=== PATIENT | male | born 1955 | race Caucasian/White ===

== ENCOUNTER 2019-02-06 12:36 | Outpatient (CLI) | payer OTHER ==
--- NOTE | 2019-02-06 13:29 | MRI ---
MRI lumbar spine noncontrast HISTORY: Low back pain with left leg radiculopathy. FINDINGS: The conus medullaris has normal appearance. There is desiccation of all of the intervertebr al discs. Discogenic endplate changes and Schmorl's nodes involving the endplate bone marrow throughout the lumbar spine. T12-L1: Mild osteophytosis. Central canal and neural foramina are patent. L1-2: Mild disc space narrowing. Mild disc bulge. Thecal sac is patent. Osteophytosis of the facets. Mild to moderate stenosis of each neural foramen. L3-4: Disc space narrowing. Diffuse posterior disc protrusion. Circumferential degenerative changes w ith mild stenosis of the central canal and moderate stenosis of each neural foramen. L4-5: Disc space narrowing. Diffuse posterior disc bulge. Circumferential degenerative changes. Moder ate stenosis of the central canal. Moderate to severe right and severe left foraminal stenoses. L5-S1: Mild disc space narrowing. Minimal disc bulge. Thecal sac is patent. Degenerative changes with moderate right and moderate to severe left foraminal stenoses. IMPRESSION: Multilevel degenerative changes throughout the lumbar spine as detailed above. Stenosis i s most severe at the left L4-5 neural foramen. Clinical correlation regarding the left L4 dermatome is required.
== END 2019-02-06 12:37 | disposition home or self-care (01) ==
LOC: TBSIIMAG 12:36
PROVIDERS: ATTEND Family Medicine
DX: M47.26 Other spondylosis with radiculopathy, lumbar region (principal); M48.061 Spinal stenosis, lumbar region without neurogenic claudication
CPT/HCPCS: 72148

== ENCOUNTER 2020-11-11 09:14 | Outpatient (CLI) | payer OTHER ==
[2020-11-12 02:13] LABS: SARS-CoV-2 PCR by NAA Not Detected (NotDetected)
== END 2020-11-11 09:15 | disposition home or self-care (01) ==
LOC: LABBT 09:14
PROVIDERS: ATTEND Ophthalmology Retina Specialist
DX: Z01.812 Encounter for preprocedural laboratory examination (principal); H54.7 Unspecified visual loss; Z20.822 Contact with and (suspected) exposure to COVID-19
CPT/HCPCS: 87635; U0003; U0005

== ENCOUNTER 2022-07-23 05:58 | Day surgery (SDC) | payer BC, MEDICARE ==
[2022-07-21 09:59] VITALS: BMI 34.7
[2022-07-23] MEDS ORDERED: Heparin 10,000 UNITS/ 10 ML VIAL ONE (06:52)
[2022-07-23] MEDS ORDERED: Dexmedetomidine 200 MCG/2 ML VIAL ONE (06:52)
[2022-07-23] MEDS ORDERED: Protamine Sulfate 50 MG/5 ML VIAL ONE (06:52)
[2022-07-23] MEDS ORDERED: Fentanyl 250 MCG/5 ML VIAL ONE (06:52)
[2022-07-23] MEDS ORDERED: Heparin 25,000 units/D5W 500 ML ONE (06:52)
[2022-07-23] MEDS ORDERED: PROPOFOL 200 MG/20 ML VIAL ONE (07:31)
[2022-07-23] MEDS ORDERED: ePHEDrine 50 MG/ML VIAL ONE (07:31)
[2022-07-23] MEDS ORDERED: Ondansetron PF 4 MG/2 ML Vial ONE ×2 (07:31→13:46)
[2022-07-23] MEDS ORDERED: Rocuronium Bromide 10 MG/ML (10ML VIAL) ONE (07:31)
[2022-07-23] MEDS ORDERED: SUGAMMADEX SODIUM 200 MG/2 ML VIAL ONE (10:12)
[2022-07-23] MEDS ORDERED: Fentanyl 100 MCG/2 ML VIAL ONE ×2 (10:47→11:35)
== END 2022-07-23 14:38 | disposition home or self-care (01) ==
LOC: SDC 05:58
PROVIDERS: ATTEND Internal Medicine Cardiovascular Disease
PROC: 4A023FZ Measurement of Cardiac Rhythm, Percutaneous Approach (ICD-10-PCS; principal; 2022-07-23)
PROC: 4A0234Z Measurement of Cardiac Electrical Activity, Percutaneous Approach (ICD-10-PCS; principal; 2022-07-23)
PROC: 02K83ZZ Map Conduction Mechanism, Percutaneous Approach (ICD-10-PCS; principal; 2022-07-23)
PROC: 02583ZZ Destruction of Conduction Mechanism, Percutaneous Approach (ICD-10-PCS; principal; 2022-07-23)
PROC: B246ZZ4 Ultrasonography of Right and Left Heart, Transesophageal (ICD-10-PCS; principal; 2022-07-23)
DX: I48.0 Paroxysmal atrial fibrillation (principal); I48.4 Atypical atrial flutter; I25.10 Atherosclerotic heart disease of native coronary artery without angina pectoris; I13.2 Hypertensive heart and chronic kidney disease with heart failure and with stage 5 chronic kidney disease, or end stage renal disease; E11.22 Type 2 diabetes mellitus with diabetic chronic kidney disease; N18.6 End stage renal disease; I50.22 Chronic systolic (congestive) heart failure; E78.5 Hyperlipidemia, unspecified; E11.42 Type 2 diabetes mellitus with diabetic polyneuropathy; I31.39 Other pericardial effusion (noninflammatory); I35.0 Nonrheumatic aortic (valve) stenosis; I44.0 Atrioventricular block, first degree; I42.8 Other cardiomyopathies; Z86.73 Personal history of transient ischemic attack (TIA), and cerebral infarction without residual deficits; Z79.01 Long term (current) use of anticoagulants; Z79.4 Long term (current) use of insulin; Z79.52 Long term (current) use of systemic steroids; Z79.890 Hormone replacement therapy; Z79.899 Other long term (current) drug therapy; Z99.2 Dependence on renal dialysis; Z94.0 Kidney transplant status
CPT/HCPCS: 36416; 85347; 93005; 93312; 93656; 93657; C1731; C1732; C1759; C1760; C1769; C1894; C2630; J1644; J2405; J2704; J2720; J3010; J3490

== ENCOUNTER 2023-07-30 08:22 | Outpatient (CLI) | payer BC, MEDICARE | END 2023-07-30 08:23 | disposition home or self-care (01) | LOC: BICCT 08:22 | PROVIDERS: ATTEND Physician Assistant Medical | DX: K59.00 Constipation, unspecified (principal); R14.0 Abdominal distension (gaseous); K76.0 Fatty (change of) liver, not elsewhere classified; N26.1 Atrophy of kidney (terminal) | CPT/HCPCS: 74176 ==